=== PATIENT | female | born 1990 | race Caucasian/White ===

== ENCOUNTER 2020-01-13 10:15 | Emergency (ER) | payer BC ==
[~2020-01-13] VITALS: Ht 160 cm; Wt 102.2 kg
[2020-01-13] MEDS ORDERED: ibuprofen tablet 400 MG TABLET PO ONE (12:00)
[2020-01-13] MEDS ORDERED: acetaminophen w/codeine (30MG) #3 tablet PO ONE (12:00)
[2020-01-13] MEDS ORDERED: ACET-1939 PO (12:12)
[2020-01-13 12:31] VITALS: BP 130/85
== END 2020-01-13 12:32 | disposition home or self-care (01) ==
LOC: ER 10:18
DX: N94.6 Dysmenorrhea, unspecified (principal); Z88.0 Allergy status to penicillin
CPT/HCPCS: 99283